=== PATIENT | male | born 1955 | race Caucasian/White ===

== ENCOUNTER → 2020-08-04 | Outpatient (CLI) | payer SELFPAY | LOC: CT 08:00 | DX: R91.1 Solitary pulmonary nodule (principal) | CPT/HCPCS: 71270; Q9963 ==

== ENCOUNTER → 2020-08-29 | Outpatient (CLI) | payer OTHER | LOC: EXRD 11:33 | DX: R91.1 Solitary pulmonary nodule (principal) | CPT/HCPCS: 71046 ==

== ENCOUNTER → 2020-10-03 | Outpatient (CLI) | payer OTHER | LOC: KOH-I 11:00 | DX: E04.1 Nontoxic single thyroid nodule (principal) | CPT/HCPCS: 76536 ==

== ENCOUNTER → 2021-03-21 | Outpatient (CLI) | payer OTHER | LOC: KOH-I 08:30 | DX: E04.1 Nontoxic single thyroid nodule (principal); R91.1 Solitary pulmonary nodule | CPT/HCPCS: 71250 ==

== ENCOUNTER → 2022-03-23 | Outpatient (CLI) | payer MEDICARE, OTHER | LOC: KOH-I 12:54 | DX: R91.1 Solitary pulmonary nodule (principal) | CPT/HCPCS: 71250 ==